=== PATIENT | female | born 1985 | race Caucasian/White ===

== ENCOUNTER 2017-07-07 03:02 | Emergency (ER) | payer MEDICAID ==
[~2017-07-07] VITALS: Ht 154.9 cm; Wt 50.0 kg
[2017-07-07 03:11] VITALS: Ht 154.9 cm; Wt 50.0 kg
[2017-07-07] MEDS ORDERED: IPRATROPIUM (NEB) 0.5 MG/2.5 ML AMP NEB STA (03:44)
[2017-07-07] MEDS ORDERED: ALBUTEROL 0.083% (NEB) 2.5 MG/3 ML AMP NEB STA (03:44)
--- NOTE | 2017-07-07 04:25 | RADRPT ---
PROCEDURE: Chest. CLINICAL INDICATION: Asthma exacerbation. TECHNIQUE: Single frontal view of the chest was obtained. COMPARISON: None. FINDINGS: The cardiac silhouette is within normal limits. The aortic arch is unremarkable. There is no focal consolidation, vascular congestion or pleural effusion. There is no pneumothorax. IMPRESSION: No evidence for active cardiopulmonary disease. .Chad Huynh MD, MD Date Time Electronically viewed and signed by .Chad Huynh MD, MD on 07/07/2017 04:24 .T/
[2017-07-07] MEDS ORDERED: ALBU8.5H3 INH (04:32)
--- NOTE | 2017-07-07 04:33 | ERD ---
ER Documentation Chief Complaint Date/Time DATE: 07/07/17 TIME: 04:31 Chief Complaint c/o sob, hx asthma, rescue inhaler ineffective. HPI 31-year-old female presents to emergency department for complaints of shortness of breath and wheezing that started yesterday, patient was seen in the clinic, was taking albuterol at home with much relief. Patient just took albuterol puffs one time last night, states that it has not helped a lot. Patient has been having cough, dry cough, does not cough up any phlegm or blood. Patient does not have any fever or chills. ROS All systems reviewed and are negative except as per history of present illness. Medications Home Meds Reported Medications Albuterol Sulfate* (Proair HFA*) Unknown Strength Hfa.aer.ad, INH Q4H Y for WHEEZING AND SOB, #1 INHALER 07/07/17 Allergies Allergies: Coded Allergies: No Known Allergy (Unverified , 07/07/17) PMhx/Soc History of Surgery: No Anesthesia Reaction: No Hx Neurological Disorder: No Hx Respiratory Disorders: Yes (asthma) Hx Cardiac Disorders: No Hx Psychiatric Problems: No Hx Miscellaneous Medical Probl: No Hx Alcohol Use: No Hx Substance Use: No Hx Tobacco Use: No Smoking Status: Never smoker FmHx Family History: No coronary disease, No diabetes, No other Physical Exam Vitals Vital Signs Date Time Temp Pulse Resp B/P Pulse Ox O2 Delivery O2 Flow Rate FiO2 07/07/17 04:03 101 20 99 21 07/07/17 03:11 98.3 92 18 123/83 97 Physical Exam GENERAL: The patient is well developed and appropriate for usual state of health, in no apparent distress. CHEST: Diffuse wheezing bilaterally. There are no rales or rhonchi. HEART: Regular rate and rhythm. No murmurs, clicks, rubs or gallops. No S3 or S4. ABDOMEN: Soft, nontender and nondistended. Good bowel sounds. No rebound or guarding. No gross peritonitis. No gross organomegaly or masses. No Lion sign or McBurney point tenderness. BACK: No midline or flank tenderness. EXTREMITIES: Equal pulses bilaterally. There is no peripheral clubbing, cyanosis or edema. No focal swelling or erythema. Full range of motion. Grossly neurovascularly intact. NEURO: Alert and oriented. Cranial nerves 2-12 intact. Motor strength in all 4 extremities with 5/5 strength. Sensation grossly intact. Normal speech and gait. SKIN: There is no apparent rash or petechia. The skin is warm and dry. HEMATOLOGIC AND LYMPHATIC: There is no evidence of excessive bruising or lymphedema. No gross cervical, axillary, or inguinal lymphadenopathy. Results 24 hrs Current Medications Medications (Trade) Dose Ordered Sig/Cristy Route PRN Reason Start Time Stop Time Status Last Admin Dose Admin Albuterol (Proventil 0.083% (Neb)) 5 mg ONCE STAT NEB 07/07/17 03:44 07/07/17 03:45 DC 07/07/17 04:01 Ipratropium [place] (Atrovent 0.02% (Neb)) 0.5 mg ONCE STAT NEB 07/07/17 03:44 07/07/17 03:45 DC 07/07/17 04:01 Breathing treatment of albuterol and Atrovent was given here in emergency department, after treatment, patient's lungs sounds are clear and patient's oxygenation is better. Patient verbalized feeling much better. PROCEDURE: Chest. CLINICAL INDICATION: Asthma exacerbation. TECHNIQUE: Single frontal view of the chest was obtained. COMPARISON: None. FINDINGS: The cardiac silhouette is within normal limits. The aortic arch is unremarkable. There is no focal consolidation, vascular congestion or pleural effusion. There is no pneumothorax. IMPRESSION: No evidence for active cardiopulmonary disease. .Chad Huynh MD, MD Date Time Electronically viewed and signed by .Chad Huynh MD, MD on 07/07/2017 04:24 .T/ CC: GIANNI FONG [employer] Procedures/MDM Medical Decision Making: Patient symptoms are most likely consistent with acute bronchitis, which viral in origin. There is low suspicion for Pneumonia at this time since patients lungs sounds are clear, patient O2 saturation is normal and patient doesnt show any respiratory distress. Patients chest xray doesnt show infiltrates or any other cardiopulmonary emergencies at this time. There is low suspicion for other cardiopulmonary emergencies at this time such as CHF, Pulmonary Embolism, Pneumothorax, Aortic Aneurysm or any other cardiopulmonary emergencies at this time. There is low suspicion for sepsis. Patient appears well and is hemodynamically stable. Fever is controlled with medicines. Disposition: Home. Condition: Stable Prescriptions: Continue albuterol, prednisone, guaifenesin DM, Zyrtec Instructions: Patient is advised to take medications as prescribed. Patient is advised to rest. Patient advised to increase fluid intake, do humidifier at home and if possible, do salt water gargles. Patient is advised that if symptoms are worse, shortness of breath, uncontrolled fever, stridor, vomiting, worst signs and symptoms to return to emergency department immediately. Otherwise, patient is advised to follow up with primary doctor in 5-7 days. Disclaimer: Inadvertent spelling and grammatical errors are likely due to EHR/ dictation software use and do not reflect on the overall quality of patient care. Also, please note that the electronic time recorded on this note does not necessarily reflect the actual time of the patient encounter. Departure Diagnosis: Primary Impression: Acute bronchitis Bronchitis organism: unspecified organism Qualified Code: J20.9 - Acute bronchitis, unspecified organism Additional Impression: Asthma exacerbation Condition: Stable Patient Instructions: Bronchitis With Wheezing (Adult) Additional Instructions: Patient is advised to take medications as prescribed. Patient is advised to rest. Patient advised to increase fluid intake, do humidifier at home and if possible, do salt water gargles. Patient is advised that if symptoms are worse, shortness of breath, uncontrolled fever, stridor, vomiting, worst signs and symptoms to return to emergency department immediately. Otherwise, patient is advised to follow up with primary doctor in 5-7 days. GIANNI FONG NP Jul 07, 2017 04:33
[2017-07-07] MEDS ORDERED: GUAI120S26 PO (04:56)
[2017-07-07] MEDS ORDERED: PRED50TA PO (04:56)
[2017-07-07] MEDS ORDERED: CETI10CA PO (04:56)
[2017-07-07 05:14] VITALS: PULSE 95; RESP 24; TEMP 97.9
== END 2017-07-07 05:05 | disposition home or self-care (01) ==
LOC: FTE 03:02
DX: J20.9 Acute bronchitis, unspecified (principal); J45.901 Unspecified asthma with (acute) exacerbation
CPT/HCPCS: 71010; 94664; Z7502; Z7610